=== PATIENT | female | born 1955 | race Caucasian/White ===

== ENCOUNTER → 2017-02-06 | Outpatient (CLI) | payer BC ==
--- NOTE | 2017-02-06 13:52 | RAD ---
EXAM: Bilateral upper extremity arterial Doppler sonogram. HISTORY: Arm pain and cold hands. TECHNIQUE: Grayscale and color Doppler sonographic imaging of the upper extremity arteries with spectral waveform analysis was performed. COMPARISON: None. FINDINGS: There are triphasic waveforms throughout the right upper extremity arteries and the left subclavian artery and there are biphasic waveforms within the remainder of the left upper extremity arteries. The peak systolic velocities within the right upper extremity measure 106 cm/s within the subclavian artery, 67 cm/s within the axillary artery, 65 cm/s within the brachial artery, 63 cm/s within the radial artery, and 59 cm/s within the ulnar artery. The peak systolic velocities within the left upper extremity measure 95 cm/s within the subclavian artery, 77 cm/s within the axillary artery, 94 cm/s within the brachial artery, 60 cm/s within the radial artery, and 53 cm/s within the ulnar artery. IMPRESSION: Bilateral upper extremity peak systolic velocities within normal limits. No hemodynamically significant stenosis or occlusion is seen.
== END | disposition home or self-care (01) ==
LOC: US 12:20
PROVIDERS: ATTEND Family Medicine
DX: M79.602 Pain in left arm (principal); M79.601 Pain in right arm; R20.2 Paresthesia of skin
CPT/HCPCS: 93930

== ENCOUNTER → 2021-01-18 | Outpatient (CLI) | payer BC ==
--- NOTE | 2021-01-18 18:04 | RAD ---
MR#: [id number] Date of Study: 01/18/2021 Ordering Physician: DEE DEE DUDLEY Referring Physician: JULISSA EDWARDS Tech: APPROVED REPORT Test Type: Exercise Stress Nurse/Tech: Leonel Preciado RN Test Indications: chest pain, jaw pain Cardiac History: HTN, x-smoker Medications: See Electronic Medical Record Medical History: See Electronic Medical Record Resting ECG: SR Resting Heart Rate: 82 bpm Resting Blood Pressure: 123/65mmHg Pretest Chest Pain: None Nurse/Tech Notes lungs CTA, S1S2 Consent: The procedure was explained to the patient in lay terms. Informed consent was witnessed. Cj eout was entered into [employer]. History and Stress Test performed by RT Carolin (R) (N) Stress Symptoms Dyspnea POST EXERCISE Reason for Termination: Fatigue Max HR: 145 bpm 93% of Maximum Predicted HR: 156 bpm Exercise duration: 9:00 min:sec, 3 Stage Max Blood Pressure: 144/63mmHg Blood Pressure response to exercise: Normal blood pressure response during stress. Heart Rate response to exercise: normal response Chest Pain: No. Arrhythmia: Yes. PVC ST Change: No. INTERPRETATION Stress EKG Conclusion: The resting EKG shows a sinus rhythm with mild nonspecific ST segment changes. The stress EKG shows further mild nonspecific ST segment changes that are not diagnostic of ischemia. No EKG evidence of stress-induced ischemia. Conclusion 1. Good exercise tolerance with the patient walking for 9 minutes on a Chaz protocol. 2. No reported chest pain with exertion. 3. Appropriate heart rate and blood pressure response to exertion. 4. No EKG evidence of stress-induced ischemia with exertion. 5. Low risk treadmill stress test. Signed by : Lucas Tuttle MD Electronically Approved : 01/18/2021 18:03:42
== END ==
LOC: NM 09:00
PROVIDERS: ATTEND Family Medicine
DX: I10 Essential (primary) hypertension (principal); Z87.891 Personal history of nicotine dependence
CPT/HCPCS: 93017

== ENCOUNTER → 2021-06-20 | Outpatient (CLI) | payer BC ==
--- NOTE | 2021-06-20 08:38 | RAD ---
EXAM: Limited abdominal ultrasound. HISTORY: Epigastric hernia. COMPARISON: None. FINDINGS: Sonographic evaluation of the epigastric site of concern was performed. No hernia is identi fied. No clear cause for pain is appreciated. IMPRESSION: 1. No hernia is appreciated at site of concern. Electronically signed by: Rachna Barry MD (06/20/2021 8:35 AM) [id number]
== END ==
LOC: US 06:44
PROVIDERS: ATTEND Family Medicine
DX: K43.9 Ventral hernia without obstruction or gangrene (principal); R07.81 Pleurodynia
CPT/HCPCS: 76705